=== PATIENT | female | born 1990 | race Caucasian/White ===

== ENCOUNTER 2017-03-06 13:58 | Inpatient (IN) | payer BC, OTHER ==
[~2017-03-06] VITALS: Ht 170.2 cm; Wt 67.1 kg
[2017-03-06 15:00] VITALS: BP 120/77
[2017-03-06] MEDS ORDERED: DICYCLOMINE HCL 20 MG TABLET PO PRN (15:00)
[2017-03-06] MEDS ORDERED: ONDANSETRON 4 MG/2 ML VIAL IM PRN (15:00)
[2017-03-06] MEDS ORDERED: LOPERAMIDE HCL 2 MG CAPSULE PO PRN ×2 (15:00)
[2017-03-06] MEDS ORDERED: MAG HYDROX/AL HYDROX/SIMETH 30 ML LIQUID UDC PO PRN (15:00)
[2017-03-06] MEDS ORDERED: LORAZEPAM 2 MG/1 ML VIAL IM PRN (15:00)
[2017-03-06] MEDS ORDERED: LORAZEPAM 1 MG TABLET PO PRN ×2 (15:00)
[2017-03-06] MEDS ORDERED: ACETAMINOPHEN 325 MG TABLET PO PRN (15:00)
[2017-03-06] MEDS ORDERED: ONDANSETRON ODT 4 MG TAB.RAPDIS SL PRN (15:00)
[2017-03-06] MEDS ORDERED: CLONIDINE HCL 0.1 MG TABLET PO PRN (15:00)
[2017-03-06] MEDS ORDERED: MAGNESIUM HYDROXIDE 30 ML LIQUID UDC PO PRN (15:00)
--- NOTE | 2017-03-06 15:00 | NUR ---
Initial Assessment Pt is a 26 y/o female here from [facility], here for Etoh r/t Vodka 750mL/d, Wine 1-2 bottles/d & Beer 2-3 sixteen ounce cans/d x 6 months for the last 12 years with the last use last night of all the alcohol beverages. Pt is here for Benzo's r/t Xanax 1-2 mg/d PO x 2 weeks over the last year with the last use last night. Pt also uses Marijuana with "1-2 bowels" per night x 1 month with hx of use over the last 12 years and Cocaine used occasionally of "3 lines x 2 per month with last use 1 week ago. HHx: Smoker of 1/2 pk/d, Anxiety, Depression, Bipolar, ADHD, GERD; Rx's by Psychiatrist Dr. Terence Cardoza in [place], [place] and has no Internal MD. Pt states that she thinks that she has Seizures since she tends to wake up from dreams with w/d symptoms and then has tremors and blacks out for unknown minutes. Family Hx: Mother is severely obese and pt states that her mother has multiple unknown existing medical conditions of "possible HTN, DM, Cardica/Heart diseases" and Father has HTN. Pt brought home medications. No hallucinations, delusions or suicidal ideations present. Pt is A&O x 4, ambulatory independently with steady gait. V/S stable. Pt is anxious, restless, mild clamminess and ringing of the ears. PERRLA 4, no JERONIMO present. Pt denies chest pain. No SOB present. Pt c/o hot flashes/chills & mild nausea. Last BM WNL's this morning. Pt denies dysuria. Dr. Nichols notified and is aware. T. 98.6 HR 90 RR 18 BP 120/77 SpO2 100% RA CIWA 11.
[2017-03-06] MEDS ORDERED: SPIR50TA3 PO (15:10)
[2017-03-06] MEDS ORDERED: ESCI20TA37 PO (15:11)
[2017-03-06 15:59] LABS: *URINE HCG, QUAL NEGATIVE (NEGATIVE)
[2017-03-06] MEDS ORDERED: THIAMINE HCL 200 MG/2 ML VIAL IM ONE (16:04)
[2017-03-06 16:18] LABS: *AMPHETAMINE, URINE NEGATIVE (NEGATIVE); *BARBITURATE, URINE NEGATIVE (NEGATIVE); *CANNABINOID, URINE NEGATIVE (NEGATIVE); *COCCAINE, URINE NEGATIVE (NEGATIVE); *OPIATE, URINE NEGATIVE (NEGATIVE); *PHENCYCLIDINE SCREEN,URINE NEGATIVE (NEGATIVE)
[2017-03-06 16:21] LABS: ALANINE AMINOTRANSFERASE 32 U/L (14-59); ALBUMIN 4.3 g/dL (3.4-5.0); ALKALINE PHOSPHATASE 59 U/L (50-136); AMYLASE 67 U/L (25-115); ASPARTATE AMINOTRANSFERASE 25 U/L (15-37); BILIRUBIN,TOTAL 0.3 mg/dL (0.2-1.0); CALCIUM 9.6 mg/dL (8.5-10.1); CARBON DIOXIDE 31 mmol/L (21-32); CHLORIDE 102 mmol/L (98-107); CREATININE 0.8 mg/dL (0.6-1.3); GFR 87 mL/min (>60); GLUCOSE 84 mg/dL (74-106); LIPASE 213 U/L (73-393); MAGNESIUM 2.2 mg/dL (1.8-2.4); POTASSIUM 3.9 mmol/L (3.5-5.1); SODIUM SERUM 139 mmol/L (136-145); TOTAL PROTEIN, SERUM 7.9 g/dL (6.4-8.2); UREA NITROGEN, BLOOD 10 mg/dL (7-18)
[2017-03-06 16:25] LABS: BASOPHILS % (AUTO) 0.7 % (0.0-2.0); EOSINOPHILS # (AUTO) 0.1 K/uL (0.0-0.7); EOSINOPHILS % (AUTO) 1.5 % (0.0-7.0); HEMATOCRIT 39.4 % (37.0-47.0); HEMOGLOBIN 13.5 g/dL (12.0-16.0); LYMPHOCYTES # (AUTO) 1.5 K/uL (0.8-4.8); LYMPHOCYTES % (AUTO) 27.6 % (20.5-51.5); MEAN CORPUSCULAR HEMOGLOBIN 31.6 uug (27.0-31.0); MEAN CORPUSCULAR HGB CONC 34 g/dL (32.0-37.0); MONOCYTES # (AUTO) 0.7 K/uL (0.1-1.30); MONOCYTES % (AUTO) 13.5 % (0.0-11.0); NEUTROPHILS # (AUTO) 3.2 K/uL (1.8-8.9); NEUTROPHILS % (AUTO) 56.7 % (38.5-71.5); PLATELET COUNT (AUTO) 343 K/uL (150-450); RED BLOOD CELL COUNT(AUTO) 4.28 MIL/uL (4.20-5.40); RED CELL DISTRIBUTION WIDTH 13.2 % (11.5-14.5); WHITE BLOOD COUNT (AUTO) 5.5 K/uL (4.0-11.2)
[2017-03-06 16:33] LABS: ETHANOL < 3 MG/DL (0-0)
[2017-03-06] MEDS: HYDROXYZINE PAMOATE 25 MG CAPSULE PO PRN (16:36)
[2017-03-06] MEDS: IBUPROFEN 400 MG TABLET PO PRN (16:43)
--- NOTE | 2017-03-06 16:45 | NUR ---
PRN Medication Administration-Initial PRN Ativan Refusal Pt is in room restless, anxious, and agitated, slightly flushed with clammy skin, mild nausea, stomach cramps, ringing in the ears, very mild dizziness, V/S stable and CIWA 11; pt refused the PRN Ativan 1mg w/n parameters x 3 and requested Valium instead, pt given Bentyl 20mg, initial Thiamine injection with PRN Motrin 400mg PO for s/p Pain, and pt accepted Vistaril 25mg PO for anxiety. I educated pt on the Actions, SE's of Ativan and the purpose for detoxification vs Vistaril for anxiety only and the purpose is to detox with seizure prevention and w/d s/sx yet the pt kept refusing the initial dose of Ativan for detox s/sx; Dr. Nichols is notified and will f/u with the pt. Will reassess in 1H.
[2017-03-06 16:58] LABS: HIV-1 p24 ANTIGEN NON REACTIVE (NONREACTIVE); HIV-1/2 ANTIBODY NON REACTIVE (NONREACTIVE)
--- NOTE | 2017-03-06 17:30 | NUR ---
Reassessment Pt is A&O x 4, ambulating steady and headed to dinner. Pt has mild anxiety present and denies pain, nausea, and stomach cramps; PRN Bentyl, Motrin and Zofran is effective. Will cont. to monitor the pt.
--- NOTE | 2017-03-06 19:00 | NUR ---
End of Shift Report to the night nurse: Pt is a new 26 y/o female here from [facility], here for Etoh r/t Vodka 750mL/d, Wine 1-2 bottles/d & Beer 2-3 sixteen ounce cans/d x 6 months for the last 12 years with the last use last night of all the alcohol beverages. Pt is here for Benzo's r/t Xanax 1-2 mg/d PO x 2 weeks over the last year with the last use last night. Pt also uses Marijuana with "1-2 bowels" per night x 1 month with hx of use over the last 12 years and Cocaine used occasionally of "3 lines x 2 per month with last use 1 week ago. HHx: Smoker of 1/2 pk/d, Anxiety, Depression, Bipolar, ADHD, GERD, insomnia, and seizure r/t Etoh w/d 2-3 days ago. V/S stable. Skin is intact. 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 Nichols notified since the pt states that she wants something for anxiety. PRN Zofran 4mg SL, Vistaril 25mg, Motrin and and Bentyl 20mg given as ordered and was effective since the pt went to dinner and returned with no non-verbal actions of anxiety, denies stomach cramps and nausea. Pt is scheduled to start 5 day Ativan taper tomorrow so endorsed to night nurse to f/u with taper with Dr. Nichols.
[2017-03-06 20:00] VITALS: BP 124/78
--- NOTE | 2017-03-06 20:00 | NUR ---
START OF SHIFT NOTE PATIENT IS A 26 YEAR OLD FEMALE, NEWLY ADMITTED FOR ETOH DEPENDENCE. PATIENT IS FULL CODE, REGULAR DIET AND NO KNOWN ALLERGY. PATIENT'S DRUG OF CHOICE ARE VODKA, WINE, BEER, XANAX , COCAINE AND MARIJUANA. PATIENT WAS PLACED ON 5 DAY ATIVAN TAPER TO BE STARTED TOMORROW. SKIN INTACT. ON FALL/SEIZURE PRECAUTION. PATIENT WAS GIVEN VISTARIL, MOTRIN, ZOFRAN AND THIAMINE INJECTION. LAST CIWA 11. PATIENT WAS REFUSING PRN ATIVAN. PATIENT EDUCATED ON MEDICATION,EXPLAINED RISKS/BENEFITS. PATIENT C/O SEVERE ANXIETY, RESTLESS, SWEATING AND NOTED TREMULOUS . RELAXATION TECHNIQUE PROVIDED. SAFETY MEASURES IN PLACE. CALL LIGHT IN REACH. WILL CONTINUE TO MONITOR.
--- NOTE | 2017-03-06 21:49 | NUR ---
PRN ATIVAN ADMINISTRATION PATIENT C/O SEVERE ANXIETY, RESTLESS, TREMULOUS AND C/O SWEATING. CIWA 8. PRN ATIVAN GIVEN. WILL MONITOR FOR EFFECTIVENESS
[2017-03-06] MEDS: LAMOTRIGINE 25 MG TABLET PO SCH (21:55)
[2017-03-06] MEDS: diphenhydrAMINE 50 MG CAPSULE PO PRN (22:45)
--- NOTE | 2017-03-06 22:45 | NUR ---
PRN BENADRYL ADMINISTRATION PATIENT REQUESTS FOR SLEEP AID. PRN BENADRYL GIVEN. WILL MONITOR FOR EFFECTIVENESS
--- NOTE | 2017-03-06 22:49 | NUR ---
PRN ATIVAN RE-ASSESSMENT PATIENT CAME STATE ATIVAN IS HELPFUL AND EFFECTIVE. CIWA 3 AT THIS TIME. WILL CONTINUE TO MONITOR
--- NOTE | 2017-03-06 23:45 | NUR ---
PRN BENADRYL RE-ASSESSMENT PATIENT IN BED WITH EYES CLOSED. RESPIRATION EVEN AND UNLABORED. SAFETY MEASURES IN PLACE. CALL LIGHT IN REACH. WILL CONTINUE TO MONITOR.
[2017-03-07] VITALS: BP 102/71
[2017-03-07 04:00] VITALS: BP 95/55
--- NOTE | 2017-03-07 07:34 | NUR ---
END OF SHIFT NOTE PATIENT IS A 26 YEAR OLD FEMALE, NEWLY ADMITTED FOR ETOH DEPENDENCE. PATIENT IS FULL CODE, REGULAR DIET AND NO KNOWN ALLERGY. PATIENT'S DRUG OF CHOICE ARE VODKA, WINE, BEER, XANAX , COCAINE AND MARIJUANA. PATIENT WAS PLACED ON 5 DAY ATIVAN TAPER TO BE STARTED TODAY. SKIN INTACT. ON FALL/SEIZURE PRECAUTION. PATIENT EDUCATED ON MEDICATION . PATIENT WAS GIVEN PRN ATIVAN FOR CIWA 8 , EFFECTIVE ,CIWA SCORE DOWN TO 3. PATIENT COMPLAINT WITH MEDICATIONS AND TREATMENT PLAN. SAFETY MEASURES IN PLACE. CALL LIGHT IN REACH. WILL CONTINUE TO MONITOR. SLEPT 8 HOURS. FLUID INTAKE 1,180 ML. VOIDED X 3. NO BM. LAST CIWA 2.
--- NOTE | 2017-03-07 07:55 | NUR ---
START OF SHIFT Rcvd client in room, she is A/O x 4, she presents with irritable mood, flat affect, she reports anxiety, fatigue, leg restlessness, and chills, she is c/o flushed face and dilated pupils. Encouraged increased fluids as tolerated. Encouraged group therapy attendance. Per date night caregiver nurse, client is a 26 year old female admitted for ETOH withdrawal. She is on 5 day Ativan taper first dose today @ 0900. Last CIWA 2 @ 1999, she had PRN Ativan 1mg CIWA 8, noted effective CIWA 2. PRN Benadryl for inability to sleep, slept 8 hrs. She reports PMH, Alcohol use disorder, Cocaine use disorder, History of withdrawal induced seizures Bipolar disorder, Anxiety disorder, Cystic acne, Seasonal allergic rhinitis, Attention deficit hyperactivity disorder. She is full code, regular diet, NKA. Client is on seizure precautions. Side rails up/padded x 2, call light within reach, bed locked in lowest positions. Will continue with plan of care
[2017-03-07 08:00] VITALS: BP 111/74
[2017-03-07] MEDS: THIAMINE HCL 100 MG TABLET PO SCH (08:17)
[2017-03-07] MEDS: MULTIVITAMINS,THERAPEUTIC TABLET PO SCH (08:17)
[2017-03-07] MEDS: FOLIC ACID 1 MG TABLET PO SCH (08:17)
[2017-03-07] MEDS: ESCITALOPRAM OXALATE 10 MG TABLET PO SCH (08:17)
[2017-03-07] MEDS ORDERED: LORAZEPAM 1 MG TABLET PO SCH (09:00)
[2017-03-07] MEDS ORDERED: TUBERCULIN,PURIF.PROT.DERIV. 5 TU/0.1 ML TEST ID ONE (09:00)
[2017-03-07] MEDS: HYDROXYZINE PAMOATE 25 MG CAPSULE PO PRN ×2 (11:00→22:54)
--- NOTE | 2017-03-07 11:00 | NUR ---
PRN CLONIDINE, VISTARIL Client reports anxiety, she appears hyperactive, restless, loud voice. PRN Clonidine 0.1 mg and Vistaril 25mg PO administered. Risk/benefits discuss. Will continue to monitor. Call light within reach.
[2017-03-07 12:00] VITALS: BP 120/75
--- NOTE | 2017-03-07 12:00 | NUR ---
REASSESSMENT PRN CLONIDINE, VISTARIL Client reports feeling a little bit better, less anxious, she is in bed watching TV. PRN Clonidine 0.1 mg and Vistaril 25mg effective. Will continue to monitor. Call light within reach.
[2017-03-07] MEDS: DIAZEPAM 10 MG TABLET PO SCH ×3 (12:24→20:37)
[2017-03-07 16:00] VITALS: BP 111/66
--- NOTE | 2017-03-07 17:00 | NUR ---
MD Nichols ordered EKG for DDI Lexapro and Vistaril, Client verbalized understanding.
--- NOTE | 2017-03-07 19:32 | NUR ---
END OF SHIFT: Client is on 5 day Valium taper, tolerating well, Last CIWA 6. She continues to present with flat affect and depressed mood. She denies any SI/HI. PRN (Vistaril and Clonidine) x given for anxiety, irritable mood, noted effective. Adequate intake and output. She was compliant with 1/3 of group therapy. She is to have an EKG for DDI Lexapro and Vistaril. She is full code, regular diet, NKA. Client is on seizure precautions. Side rails up/padded x 2, call light within reach, bed locked in lowest positions. Endorsed to incoming nurse.
[2017-03-07 20:00] VITALS: BP 110/70
--- NOTE | 2017-03-07 20:00 | NUR ---
START OF SHIFT NOTE PATIENT IN ROOM, RESTING. ALERT AND ORIENTED X 4. PATIENT REPORTS ANXIETY, SWEATING, TREMORS, CHILLS AND BACK PAIN 07/11. PATIENT STATES SHE NEEDS A LAXATIVE. NO N/V. PATIENT IS A 26 YEAR OLD FEMALE ADMITTED FOR ETOH DEPENDENCE. PATIENT IS FULL CODE, REGULAR DIET AND NO KNOWN ALLERGY. PATIENT WAS PLACED ON 5 DAY ATIVAN TAPER AND WAS CHANGED TO [address]. KIMBALL. PER DAY SHIFT NURSE PATIENT WAS GIVEN CATAPRES AND VISTARIL. LAST CIWA 6. PATIENT HAS AN ORDER FOR EKG FOR LEXAPRO AND VISTARIL INTERACTION. ON FALL/SEIZURE PRECAUTION. SKIN INTACT. SAFETY MEASURES IN PLACE. CALL LIGHT IN REACH. WILL CONTINUE TO MONITOR.
[2017-03-07] MEDS: LAMOTRIGINE 25 MG TABLET PO SCH (20:37)
[2017-03-07] MEDS: diphenhydrAMINE 50 MG CAPSULE PO PRN (20:38)
[2017-03-07] MEDS: MIRALAX 17 GM POWD.PACK PO PRN (20:38)
--- NOTE | 2017-03-07 20:38 | NUR ---
PRN BENADRYL/MAALOX/MIRALAX PATIENT REQUESTS FOR SLEEP AID, C/O HEARTBURN AND NEEDS LAXATIVE. PRN BENADRYL, MAALOX AND MIRALAX GIVEN. ENCOURAGE FLUIDS. WILL MONITOR FOR EFFECTIVENESS
[2017-03-07] MEDS: IBUPROFEN 400 MG TABLET PO PRN (20:47)
--- NOTE | 2017-03-07 20:47 | NUR ---
PRN MOTRIN ADMINISTRATION PATIENT C/O BACK PAIN 07/11. PRN MOTRIN GIVE. WILL MONITOR FOR EFFECTIVENESS
--- NOTE | 2017-03-07 21:38 | NUR ---
PRN MIRALAX RE-ASSESSMENT PATIENT HEARTBURN RELIEVED. MIRALAX HELPFUL AND EFFECTIVE. WILL CONTINUE TO MONITOR.
--- NOTE | 2017-03-07 21:47 | NUR ---
PRN MOTRIN RE-ASSESSMENT PATIENT PAIN LEVEL FROM 8 DOWN TO 3, PAIN TOLERABLE. MOTRIN HELPFUL AND EFFECTIVE. WILL CONTINUE TO MONITOR
--- NOTE | 2017-03-07 22:54 | NUR ---
PRN BENADRYL RE-ASSESSMENT/PRN VISTARIL PATIENT STATES BENADRYL IS INEFFECTIVE, PATIENT STILL AWAKE AND C/O ANXIETY. PRN VISTARIL GIVEN. WILL MONITOR FOR EFFECTIVENESS
[2017-03-08] VITALS: BP 102/57
--- NOTE | 2017-03-08 | NUR ---
PRN VISTARIL RE-ASSESSMENT PATIENT IN BED WITH EYES CLOSED. RESPIRATION EVEN AND UNLABORED. SAFETY MEASURES IN PLACE. CALL LIGHT IN REACH. WILL CONTINUE TO MONITOR.
[2017-03-08 04:00] VITALS: BP 93/54
--- NOTE | 2017-03-08 07:27 | NUR ---
END OF SHIFT PATIENT ALERT AND ORIENTED X 4. RESPIRATION EVEN AND UNLABORED. PATIENT C/O OF ANXIETY, SWEATING, CHILLS, TREMORS AND BACK PAIN DURING SHIFT. PATIENT UNABLE TO SLEEP AT 2037 AND BENADRY WAS GIVEN. SHE ALSO COMPLAIN OF HEARTBURN ,REQUESTED TO HAVE LAXATIVE AND C/O BACK PAIN. MAALOX , MIRALAX AND MOTRIN WAS GIVEN AT 2037. MAALOX AND MOTRIN WAS EFFECTIVE. PATIENT AT 2253 C/O ANXIETY AND BENADRYL WAS NOT EFFECTIVE. PRN VISTARIL GIVEN AT 2253 AND WAS EFFECTIVE. 629, PATIENT VERBALIZES MIRALAX INEFFECTIVE. OFFERED MILK OF MAGNESIA AND STATES SHE WILL ASK FOR IT LATER. PATIENT ALSO ADDED A PAIN MEDICATION OTHER THAN TYLENOL AND MOTRIN. WILL ENDORSE TO DAY SHIFT NURSE. ON FALL/SEIZURE PRECAUTION. SKIN INTACT. SAFETY MEASURES IN PLACE. CALL LIGHT IN REACH. WILL CONTINUE TO MONITOR. SLEPT 6 HOURS. FLUID INTAKE 1,291 ML. VOIDED X 1 . NO BM. LAST CIWA 2.
--- NOTE | 2017-03-08 07:50 | NUR ---
START OF SHIFT Rcvd client in room, she is A/O x 4, she presents with depressed mood, flat affect, she reports fatigue, leg restlessness, chills, constipation, she is c/o flushed face and dilated pupils. Encouraged increased fluids and activity as tolerated. Encouraged group therapy attendance. Per shift stacker nurse, client was admitted for ETOH withdrawal. She is on 5 day Ativan taper, tolerating well. Last CIWA 2 @ 1999, she had PRN Maalox for heartburn, Motrin back pain, Benadryl for inability to sleep, she slept 6 hrs, Miralax for constipation, no BM yet. PMH, Alcohol use disorder, Cocaine use disorder, History of withdrawal induced seizures, Bipolar disorder, Anxiety disorder, Cystic acne, Seasonal allergic rhinitis, Attention deficit hyperactivity disorder. She is full code, regular diet, NKDA. Client is on seizure precautions. Side rails up/padded x 2, call light within reach, bed locked in lowest positions. Will continue with plan of care
[2017-03-08 08:00] VITALS: BP 110/66
[2017-03-08] MEDS: MIRALAX 17 GM POWD.PACK PO PRN (08:41)
[2017-03-08] MEDS: FOLIC ACID 1 MG TABLET PO SCH (08:41)
[2017-03-08] MEDS: THIAMINE HCL 100 MG TABLET PO SCH (08:41)
[2017-03-08] MEDS: DIAZEPAM 10 MG TABLET PO SCH ×3 (08:41→20:30)
[2017-03-08] MEDS: ESCITALOPRAM OXALATE 10 MG TABLET PO SCH (08:41)
--- NOTE | 2017-03-08 08:41 | NUR ---
PRN MIRALAX Client reports constipation, Miralax 17G PO administered, advice to increased fluid intake and mobility as tolerated, she verbalized understanding. Call light within reach. will continue to monitor.
[2017-03-08] MEDS: MULTIVITAMINS,THERAPEUTIC TABLET PO SCH (08:42)
[2017-03-08] MEDS ORDERED: LORAZEPAM 1 MG TABLET PO SCH (09:00)
--- NOTE | 2017-03-08 09:41 | NUR ---
REASSESSMENT PRN MIRALAX Client reports no bowel movement at this time. Call light within reach. will continue to monitor.
[2017-03-08 12:08] LABS: HCV AB <0.1 s/co ratio (0.0-0.9); HEPATITIS B CORE AB, IgM Negative (Negative); HEPATITIS B SURFACE AG Negative (Negative)
--- NOTE | 2017-03-08 12:25 | NUR ---
MD NOTIFICATION Dr. Nichols notified of lab results RPR Reactive RPR Confirmation 1:1 He stated "I'm going to order some follow up test to further evaluate."
[2017-03-08] MEDS: KETOROLAC TROMETHAMINE 30 MG INJ IM PRN (13:03)
[2017-03-08] MEDS: DOCUSATE SODIUM 250 MG CAPSULE PO SCH (13:04)
[2017-03-08] MEDS: LIDOCAINE 5% PATCH TD SCH (13:04)
[2017-03-08 13:09] VITALS: BP 105/67
[2017-03-08] MEDS: CLONIDINE HCL 0.1 MG TABLET PO SCH ×2 (14:15→20:29)
[2017-03-08] MEDS: GABAPENTIN 300 MG CAPSULE PO SCH ×2 (14:16→20:30)
[2017-03-08] MEDS: MAGNESIUM CITRATE 296 ML BOTTLE PO PRN (14:16)
--- NOTE | 2017-03-08 14:16 | NUR ---
PRN CITRATE OF MAGNESIUM Client reports constipation, Citrate of magnesium 296mL administered. Advice to increase fluid intake and ambulation as tolerated. Call light within reach. will continue to monitor
--- NOTE | 2017-03-08 15:16 | NUR ---
REASSESSMENT PRN CITRATE OF MAGNESIUM Client reports no bowel movement at this time. Call light within reach. will continue to monitor.
[2017-03-08 16:50] VITALS: BP 111/67
[2017-03-08] MEDS ORDERED: CLONIDINE HCL 0.1 MG TABLET PO ONE (19:00)
[2017-03-08] MEDS ORDERED: HYDROXYZINE PAMOATE 25 MG CAPSULE PO ONE (19:00)
--- NOTE | 2017-03-08 19:04 | NUR ---
ONE TIME VISTARIL 50MG, CLONIDINE 0.1MG. PRN MILK OF MAGNESIA Client spoke with her sisters and appears agitated, irritable she is crying, ordered one time vistaril and Clonidine. She reports constipation MOM administered. Will endorse incoming nurse to reassess. Call light within reach.
--- NOTE | 2017-03-08 19:30 | NUR ---
START OF SHIFT NOTE : Pt. is 26 years old female , here for ETOH, Benzo's, Marijuana dependency , she is A/O x 4, she presents with depressed mood, flat affect, she reports fatigue, leg restlessness, constipation. Encouraged increased fluids and activity as tolerated. She is full code, regular diet, NKDA. Client is on seizure precautions. Last CIWA=6 at 16:00. Pt. asked for PRN medications together with P.M. meds. Safety measures in place : bed on lowest position with side rails x2 up for safety, call light within reach. Will continue to monitor closely and offer help.
--- NOTE | 2017-03-08 19:47 | NUR ---
END OF SHIFT: Client is on 5 day Valium taper, tolerating well, Last CIWA 4. She continues to present with flat affect and depressed mood. She denies any SI/HI. PRN Miralax, citrate of magnesium for constipation, not effective. (Vistaril and Clonidine) x 1 given for anxiety, irritable mood and MOM for constipation administered, incoming nurse to reassess.. Adequate intake and output. She was compliant with 1/3 of group therapy. She is full code, regular diet, NKA. Client is on seizure precautions. Side rails up/padded x 2, call light within reach, bed locked in lowest positions. Endorsed to incoming nurse.
[2017-03-08 20:00] VITALS: BP 101/68
--- NOTE | 2017-03-08 20:00 | NUR ---
REASSESSMENT ONE TIME VISTARIL, CLONIDINE, PRN MILK OF MAGNESIA Client states decreased level of anxiety, feels better, no flashes observed. Safety measures in place : bed on lowest position with side rails x2 up for safety, call light within reach. Will continue to monitor closely and offer help.
[2017-03-08] MEDS: diphenhydrAMINE 50 MG CAPSULE PO PRN (20:28)
[2017-03-08] MEDS: IBUPROFEN 600 MG TABLET PO PRN (20:28)
[2017-03-08] MEDS: LAMOTRIGINE 25 MG TABLET PO SCH (20:29)
--- NOTE | 2017-03-08 21:00 | NUR ---
ALBA NARANJO, DESTIN, MYLANTA Pt. complains of heartburn, increased level of anxiety, 5-6/10, body ache 5/10, sleeplessness. Safety measures in place : bed on lowest position with side rails x2 up for safety, call light within reach. Will continue to monitor closely and offer help.
--- NOTE | 2017-03-08 21:55 | NUR ---
REASSESSMENT ALBA HART BENADRYL, MYLANTA Pt. is able to rest quietly is ready to sleep, states decreased level of anxiety, 2/10, body ache 2/10. Safety measures in place : bed on lowest position with side rails x2 up for safety, call light within reach. Will continue to monitor closely and offer help.
[2017-03-09 04:00] VITALS: BP 85/50
--- NOTE | 2017-03-09 06:43 | NUR ---
END OF SHIFT NOTE : Pt. is 26 years old female , here for ETOH, Benzo's, Marijuana dependency , she is A/O x 4, she presents with depressed mood, flat affect, she reports fatigue, leg restlessness, constipation. Encouraged increased fluids and activity as tolerated. She is full code, regular diet, NKDA. Client is on seizure precautions PRN MOTRIN, BENADRYL, VISTARIL were given during my shift. V/S remain WNL. RR=16, even and unlabored, lungs clear upon auscultation, abdomen soft and non- distended. Pt denies nausea, vomiting and diarrhea. LAST CIWA= 3 at 0400 , IYAJAM=[id number] ml, voided x 3, slept 9 hours. Safety measures in place : bed on lowest position with side rails x2 up for safety, call light within reach. Will continue to monitor closely and offer help.
--- NOTE | 2017-03-09 07:10 | NUR ---
Start of Shift Endorsement received from nightshift nurse. Pt is a 26 y/o female admitted for alxohol and xanax dependence. Pt has been placed on a 5 day Valium taper. pt is mildly withdrawing at this time AEB CIWA 3 at 0400. Pt received PRN Motrin, Vistaril and Benadryl during evening or night nurse supervisor. Pt has slept 9 hours. PT is alert and oriented x4. Pt is in STABLE condition at this time. Remains compliant with medication and diet regimen. All needs have been met, All safety measures in place per hospital policy. Bed in lowest position, side rails up x2, call-light within reach. Will continue to monitor
[2017-03-09 08:00] VITALS: BP 95/58
[2017-03-09] MEDS ORDERED: LORAZEPAM 1 MG TABLET PO SCH (09:00)
[2017-03-09] MEDS: LIDOCAINE 5% PATCH TD SCH (09:00)
[2017-03-09] MEDS: DOCUSATE SODIUM 250 MG CAPSULE PO SCH (09:23)
[2017-03-09] MEDS: ESCITALOPRAM OXALATE 10 MG TABLET PO SCH (09:23)
[2017-03-09] MEDS: CLONIDINE HCL 0.1 MG TABLET PO SCH ×3 (09:24→20:45)
[2017-03-09] MEDS: THIAMINE HCL 100 MG TABLET PO SCH (09:24)
[2017-03-09] MEDS: MULTIVITAMINS,THERAPEUTIC TABLET PO SCH (09:24)
[2017-03-09] MEDS: GABAPENTIN 300 MG CAPSULE PO SCH ×3 (09:24→20:46)
[2017-03-09] MEDS: FOLIC ACID 1 MG TABLET PO SCH (09:25)
[2017-03-09] MEDS: DIAZEPAM 5 MG TABLET PO SCH ×4 (09:25→20:49)
--- NOTE | 2017-03-09 09:30 | NUR ---
PRN Motrin Administered PRN Motrin for headache of 5/10 reported by pt.
[2017-03-09] MEDS: IBUPROFEN 600 MG TABLET PO PRN (09:31)
--- NOTE | 2017-03-09 10:00 | NUR ---
Medication Re-assessment Pt reports relief from headache and rates pain 1/10. Medication was effective.
[2017-03-09] MEDS ORDERED: BISACODYL 5 MG TABLET.DR PO PRN (11:45)
[2017-03-09] MEDS ORDERED: BISACODYL 10 MG SUPP.RECT RC PRN (11:45)
[2017-03-09] MEDS: MAGNESIUM CITRATE 296 ML BOTTLE PO PRN (12:57)
[2017-03-09] MEDS: HYDROXYZINE PAMOATE 25 MG CAPSULE PO PRN ×2 (12:57→20:43)
--- NOTE | 2017-03-09 12:57 | NUR ---
PRN Medication Pt received PRN Magnesium Citrate and Dulcolax for constipation.
--- NOTE | 2017-03-09 12:57 | NUR ---
PRN Vistaril Administered PRN Vistaril for 06/10 anxiety reported by pt.
[2017-03-09 13:00] VITALS: BP 115/59
--- NOTE | 2017-03-09 13:30 | NUR ---
Medication re-assessment Pt reports 3/10 anxiety at this time. Medication was partially effective.
--- NOTE | 2017-03-09 14:00 | NUR ---
PRN Re-assessment Pt reports 3 BMs, medications were effective.
--- NOTE | 2017-03-09 15:10 | NUR ---
PRN Imodium Administered PRN Imodium due to reported Diarrhea by pt.
[2017-03-09 16:00] VITALS: BP 100/51
--- NOTE | 2017-03-09 19:02 | NUR ---
End of Shift Endorsement given to nightshift nurse. Pt is a 26 y/o female admitted for alcohol and Xanax dependence. Pt has been placed on a 5 day Valium taper. pt is mildly withdrawing at this time AEB CIWA 4 at 1600. Pt received PRN Motrin, Vistaril, Imodium, Magnesium Citrate and Dulcolax. Pt has participated in groups and activities. Educated pt on deep breathing techniques to help relieve minor to moderate anxiety. Pt returned demonstration. Intake: 3585ml, Void x7, BM x6. PT is alert and oriented x4. Pt is in STABLE condition at this time. Remains compliant with medication and diet regimen. All needs have been met, All safety measures in place per hospital policy. Bed in lowest position, side rails up x2, call-light within reach. Will continue to monitor
--- NOTE | 2017-03-09 19:30 | NUR ---
START OF SHIFT NOTE : Pt. is 26 years old female , here for ETOH, Benzo's, Marijuana dependency , she is A/O x 4, she presents with depressed mood, flat affect, she reports fatigue. Encouraged increased fluids and activity as tolerated. She is full code, regular diet, NKDA. Client is on seizure precautions. CIWA=4 . Pt. asked for another dose of Imodium because of liquid stool. VS stable. Safety measures in place : bed on lowest position with side rails x2 up for safety, call light within reach. Will continue to monitor closely and offer help.
[2017-03-09 20:00] VITALS: BP 106/74
[2017-03-09] MEDS: diphenhydrAMINE 50 MG CAPSULE PO PRN (20:43)
[2017-03-09] MEDS: LAMOTRIGINE 25 MG TABLET PO SCH (20:46)
--- NOTE | 2017-03-09 21:00 | NUR ---
PRN IMODIUM, VISTARIL, BENADRYL Pt. complains of heartburn, increased level of anxiety, 5-6/10, sleeplessness, liquid stool. Safety measures in place : bed on lowest position with side rails x2 up for safety, call light within reach. Will continue to monitor closely and offer help.
--- NOTE | 2017-03-09 21:55 | NUR ---
REASSESSMENT IMODIUM, VISTARIL, BENADRYL Pt. is able to rest quietly is ready to sleep, states decreased level of anxiety, 2/10. She has smoked, no BM after Imodium dose. Safety measures in place : bed on lowest position with side rails x2 up for safety, call light within reach. Will continue to monitor closely and offer help.
[2017-03-10 04:00] VITALS: BP 85/50
--- NOTE | 2017-03-10 06:49 | NUR ---
END OF SHIFT NOTE : Pt. is 26 years old female , here for ETOH, Benzo's, Marijuana dependency , she is A/O x 4, she presents with depressed mood, flat affect, she reports fatigue, leg restlessness, constipation. Encouraged increased fluids and activity as tolerated. She is full code, regular diet, NKDA. Client is on seizure precautions.PRN IMODIUM, BENADRYL, VISTARIL were given during my shift. V/S remain WNL. RR=16, even and unlabored, lungs clear upon auscultation, abdomen soft and non- distended. Pt denies nausea, vomiting and diarrhea. LAST CIWA= 3 at 0400 , WNTIAU=064 ml, voided x 1, slept 7 hours. BP was low in A.M. as before. BM x3 in the night. Safety measures in place : bed on lowest position with side rails x2 up for safety, call light within reach. Will continue to monitor closely and offer help.
--- NOTE | 2017-03-10 07:49 | NUR ---
START OF SHIFT NOTE: Received report from rn night nurse. Pt. is 26 year old female admitted 03-06-17 for ETOH, Benzo's, Marijuana dependency. Pt is on a 5 day Valium taper. Tolerating well. Pt is alert and oriented X4. Color good, skin warm and dry. Respirations even and unlabored. Pt is on a 5 day Ativan taper. Tolerating well. Pt is on 1:1 status due to pt being disoriented during the night. Safety precautions observed. Call light within reach. Will continue to monitor. Addendum: 03/10/17 at 0949 by HEIDY LUNA RN Please disregard the above note which states prt is on a 1:1 She is not
[2017-03-10 07:51] LABS: FOLIC ACID 18.7 NG/ML (8.6-58.9)
[2017-03-10 08:00] VITALS: BP 112/60
[2017-03-10] MEDS: FOLIC ACID 1 MG TABLET PO SCH (08:35)
[2017-03-10] MEDS: DOCUSATE SODIUM 250 MG CAPSULE PO SCH (08:35)
[2017-03-10] MEDS: GABAPENTIN 300 MG CAPSULE PO SCH ×3 (08:35→21:32)
[2017-03-10] MEDS: MULTIVITAMINS,THERAPEUTIC TABLET PO SCH (08:35)
[2017-03-10] MEDS: ESCITALOPRAM OXALATE 10 MG TABLET PO SCH (08:36)
[2017-03-10] MEDS: THIAMINE HCL 100 MG TABLET PO SCH (08:36)
[2017-03-10] MEDS: DIAZEPAM 5 MG TABLET PO SCH ×3 (08:36→21:33)
[2017-03-10] MEDS: CLONIDINE HCL 0.1 MG TABLET PO SCH ×3 (08:38→21:33)
[2017-03-10] MEDS: LIDOCAINE 5% PATCH TD SCH (08:42)
[2017-03-10] MEDS ORDERED: LORAZEPAM 1 MG TABLET PO SCH (09:00)
--- NOTE | 2017-03-10 10:00 | NUR ---
VSS CIWA 9 Pt c/o anxiety, tremors and sweating.
[2017-03-10 12:59] VITALS: BP 122/72
--- NOTE | 2017-03-10 15:00 | NUR ---
VSS CIWA 6 Pt states "I feel better." Still with anxiety.
[2017-03-10 18:40] VITALS: BP 112/60
--- NOTE | 2017-03-10 19:15 | NUR ---
START OF SHIFT Received 26 year old female patient admitted on 03/06/17 for ETOH, Xanax, and Marijuana dependency. Pt is full code with NKDevendra. She reports a PMHx of anxiety, depression, bipolar and ADHD, Seizure 2-3 days ago related to ETOH w/d and insomnia. She reports drinking vodka 1/5th daily for 6 months. Last dose was 03/05/17. Wine 1-2 bottles daily x 6 months. Last dose 03/05/17. Beer 2-3, 16 oz daily for 6 months. Last dose 03/06/17. Xanax 1-2 mg 2x/week for 1 year. Last dose was 03/05/17. Cocaine 3 lines twice a month occasional use. Last dose was one week ago. And Marijuana 1-2 bowls/ night for one month. Last dose 03/05/17. Pt placed on 5 day Valium taper and tolerating well. Per endorsement, pt did not receive or request PRN medications. Pt is alert and oriented x4, breathing is even and unlabored. Pt safe with bed locked in lowest position, side rails up x2 and call light within reach. Will continue to monitor.
--- NOTE | 2017-03-10 19:17 | NUR ---
END OF SHIFT NOTE: Report given to overnight stocker nurse. Pt. is 26 year old female admitted 03-06-17 for ETOH, Benzo's, Marijuana dependency. Pt is on a 5 day Valium taper. Tolerating well. Pt is alert and oriented X4. Color good, skin warm and dry. Respirations even and unlabored. Pt is on a 5 day Ativan taper. Tolerating well. Vital signs have remained stable throughout shift. Last CIWA 6 @ 1500. No prn's given . Safety precautions observed. Call light within reach.
[2017-03-10 20:00] VITALS: BP 127/62
[2017-03-10] MEDS: LAMOTRIGINE 25 MG TABLET PO SCH (21:32)
[2017-03-10] MEDS: QUETIAPINE FUMARATE 25 MG TABLET PO PRN (21:33)
[2017-03-10] MEDS: KETOROLAC TROMETHAMINE 30 MG INJ IM PRN (21:34)
--- NOTE | 2017-03-10 21:34 | NUR ---
PRN TORADOL/SEROQUEL Pt complains of 10/10 lower back achy, throbbing pain. Pt complains of agitation. PRN Toradol/Seroquel administered as ordered. Breathing is even and unlabored, safety measures in place. Will continue to monitor effectiveness of medications.
--- NOTE | 2017-03-10 22:34 | NUR ---
PRN TORADOL/SEROQUEL REASSESSMENT PRN medications effective. Pt reports decrease in lower back pain 6/10, and pt observed to be less agitated. Breathing even and unlabored, safety measures in place. Will continue to monitor.
[2017-03-11] VITALS: BP 96/60
[2017-03-11 04:00] VITALS: BP 93/58
--- NOTE | 2017-03-11 07:02 | NUR ---
Start of Shift Endorsement received from nightshift nurse. Pt is a 26 y/o female admitted for alcohol and Xanax dependence. Pt has been placed on a 5 day Valium taper. Pt has received PRN Toradol and Seroquel . Pt is mildly withdrawing at this time AEB CIWA 3 at 0400. Pt reports readiness for sobriety. Pt is tolerating the taper well, VS WNL, Full Code.. Pt has slept 7 hours. PT is alert and oriented x4. Pt is in STABLE condition at this time. Remains compliant with medication and diet regimen. All needs have been met, All safety measures in place per hospital policy. Bed in lowest position, side rails up x2, call-light within reach. Will continue to monitor
--- NOTE | 2017-03-11 07:09 | NUR ---
END OF SHIFT Pt remained stable. Pt had uneventful night. She received PRN medications of Toradol IM, and Seroquel at 2134 d/t complains of lower back pain 10/10 and agitation. PRN medications were effective. She slept a total of 7 hrs, intake:3087mL void:x4 BM:x1 CIWA:3. Pt remains alert and oriented x4, breathing is even and unlabored, safety measures in place. Will endorse to oncoming shift.
[2017-03-11 08:00] VITALS: BP 107/69
[2017-03-11] MEDS: ESCITALOPRAM OXALATE 10 MG TABLET PO SCH (08:29)
[2017-03-11] MEDS: THIAMINE HCL 100 MG TABLET PO SCH (08:30)
[2017-03-11] MEDS: DOCUSATE SODIUM 250 MG CAPSULE PO SCH (08:30)
[2017-03-11] MEDS: CLONIDINE HCL 0.1 MG TABLET PO SCH ×3 (08:30→20:42)
[2017-03-11] MEDS: FOLIC ACID 1 MG TABLET PO SCH (08:30)
[2017-03-11] MEDS: GABAPENTIN 300 MG CAPSULE PO SCH ×3 (08:30→20:41)
[2017-03-11] MEDS: MULTIVITAMINS,THERAPEUTIC TABLET PO SCH (08:30)
[2017-03-11] MEDS: DIAZEPAM 5 MG TABLET PO SCH ×2 (08:30→20:41)
[2017-03-11] MEDS: LIDOCAINE 5% PATCH TD SCH (08:35)
[2017-03-11] MEDS ORDERED: LORAZEPAM 1 MG TABLET PO SCH (09:00)
[2017-03-11 12:00] VITALS: BP 114/62
[2017-03-11] MEDS: NICOTINE 7 MG/24HR PATCH TD SCH (13:00)
[2017-03-11] MEDS ORDERED: NICOTINE POLACRILEX 4 MG GUM-PK OF TEN BC PRN (13:00)
[2017-03-11] MEDS: IBUPROFEN 600 MG TABLET PO PRN (13:25)
[2017-03-11 16:00] VITALS: BP 122/61
--- NOTE | 2017-03-11 19:15 | NUR ---
START OF SHIFT Received 26 year old female patient admitted on 03/06/17 for ETOH, Xanax, and Marijuana dependency. Pt is full code with NKA. Pt placed on 5 day Valium taper started on 03/07/17 and tolerating well. Per endorsement, pt did not receive or request PRN medications. Pt is alert and oriented x4, breathing is even and unlabored. Pt safe with bed locked in lowest position, side rails up x2 and call light within reach. Will continue to monitor.
--- NOTE | 2017-03-11 19:29 | NUR ---
End of Shift Endorsement given to nightshift nurse. Pt is a 26 y/o female admitted for alcohol and Xanax dependence. Pt has been placed on a 5 day Valium taper. Pt did not receive any PRN medications . Pt is mildly withdrawing at this time AEB CIWA 2 at 1600. Pt reports readiness for sobriety. Intake: 3400ml, Void x4, BM x1 Pt is tolerating the taper well, VS WNL, Full Code.. Pt participated in groups and activities. PT is alert and oriented x4. Pt is in STABLE condition at this time. Remains compliant with medication and diet regimen. All needs have been met, All safety measures in place per hospital policy. Bed in lowest position, side rails up x2, call-light within reach. Will continue to monitor
[2017-03-11 20:00] VITALS: BP 110/70
[2017-03-11] MEDS: LAMOTRIGINE 25 MG TABLET PO SCH (20:41)
[2017-03-11] MEDS: QUETIAPINE FUMARATE 25 MG TABLET PO PRN (20:42)
--- NOTE | 2017-03-11 20:42 | NUR ---
PRN SEROQUEL Pt complains of increased agitation/ anxiety. PRN Seroquel administered as ordered. Breathing is even and unlabored, safety measures in place. Will continue to monitor.
--- NOTE | 2017-03-11 21:42 | NUR ---
PRN SEROQUEL REASSESSMENT PRN medication effective. Pt observed to be more calm and less agitated. Breathing is even and unlabored, safety measures in place. Will continue to monitor.
[2017-03-12] VITALS: BP 108/65
[2017-03-12 04:00] VITALS: BP 93/52
[2017-03-12] MEDS: HYDROXYZINE PAMOATE 25 MG CAPSULE PO PRN ×3 (04:03→20:57)
--- NOTE | 2017-03-12 04:03 | NUR ---
PRN VISTARIL Pt complains of anxiety and inability to fall back asleep. Pt observed to be restless in bed. PRN Vistaril administered as ordered. Breathing even and unlabored, respirations 16, safety measures in place. Will continue to monitor effectiveness.
--- NOTE | 2017-03-12 05:03 | NUR ---
PRN VISTARIL REASSESSMENT PRN Vistaril effective. Pt lying quietly in bed with eyes closed. Appears calm and less anxious. Breathing is even and unlabored, safety measures in place. Will continue to monitor.
--- NOTE | 2017-03-12 07:09 | NUR ---
END OF SHIFT Pt remained stable and had uneventful night. She continues on 5 day valium taper and tolerating well. She received PRN Seroquel at 2 d/t agitation, and PRN Vistaril at 0403 d/t anxiety. PRN medications were effective in decreasing her agitation and anxiety. Pt reports withdrawal symptoms of anxiety and states that taper is effective in relieving her symptoms as evidenced by decrease CIWA score of 3. She slept a total of 6 hrs, Intake: 946 mL, Void: x1, BM: 0. CIWA:3 at 0400. Pt remains alert and oriented x4, breathing is even and unlabored, safety measures in place. Endorsed to AM shift.
[2017-03-12] MEDS: IBUPROFEN 600 MG TABLET PO PRN ×2 (07:27→20:41)
--- NOTE | 2017-03-12 07:27 | NUR ---
PRN Pt with c/o headache 06/10. MOtrin po prn per MD order given and tolerated well.
[2017-03-12 08:00] VITALS: BP 150/117
--- NOTE | 2017-03-12 08:00 | NUR ---
START OF SHIFT Pt 26 y/o female admitted for etoh abuse. Pt received in room awake watching television. Pt alert and oriented to name, place, and time. Perrla. Skin warm and dry to touch. Respirations even and unlabored. It was reported that pt slept for 6 hours last night. Pt completed a 5 day valium taper. Bed on lowest position with side rails x2 up for safety. Call light within reach. No distress noted at this time.
[2017-03-12 08:13] LABS: *BENZODIAZEPINES Negative (Cutoff=300)
[2017-03-12 08:13] LABS: VIT D, 25-HYDROXY 27.9 ng/mL (30.0-100.0)
--- NOTE | 2017-03-12 08:27 | NUR ---
PRN EVAL Pt states headache 2/10 pain level.
[2017-03-12] MEDS: NICOTINE 7 MG/24HR PATCH TD SCH (09:00)
[2017-03-12] MEDS: ESCITALOPRAM OXALATE 10 MG TABLET PO SCH (10:39)
[2017-03-12] MEDS: THIAMINE HCL 100 MG TABLET PO SCH (10:39)
[2017-03-12] MEDS: MULTIVITAMINS,THERAPEUTIC TABLET PO SCH (10:39)
[2017-03-12] MEDS: GABAPENTIN 300 MG CAPSULE PO SCH ×3 (10:39→20:41)
[2017-03-12] MEDS: DOCUSATE SODIUM 250 MG CAPSULE PO SCH (10:39)
--- NOTE | 2017-03-12 10:39 | NUR ---
PRN Pt hyperverbal, fidgety, and restless. Vistaril po prn per MD order given and tolerated well.
[2017-03-12] MEDS: FOLIC ACID 1 MG TABLET PO SCH (10:40)
[2017-03-12] MEDS: LIDOCAINE 5% PATCH TD SCH (10:40)
[2017-03-12] MEDS: CLONIDINE HCL 0.1 MG TABLET PO SCH ×3 (10:40→20:40)
--- NOTE | 2017-03-12 11:00 | NUR ---
NSG ENTRY Pt with crying and tearful episode. Pt stated was upset that she is going to treatment center after here. Dr. Nichols and convention planner on unit and talked with pt.
--- NOTE | 2017-03-12 11:38 | NUR ---
PRN LAURA Pt observed in group activity sitting on chair.
[2017-03-12] MEDS: QUETIAPINE FUMARATE 25 MG TABLET PO PRN ×2 (12:33→19:05)
--- NOTE | 2017-03-12 12:35 | NUR ---
PRN Pt with agitated episode. Pt raising voice and hard to redirect. Seroquel po prn per MD order given and tolerated well.
[2017-03-12 13:00] VITALS: BP 98/58
[2017-03-12 13:34] LABS: *AMPHETAMINE, URINE NEGATIVE (NEGATIVE); *BARBITURATE, URINE NEGATIVE (NEGATIVE); *CANNABINOID, URINE NEGATIVE (NEGATIVE); *COCCAINE, URINE NEGATIVE (NEGATIVE); *OPIATE, URINE NEGATIVE (NEGATIVE); *PHENCYCLIDINE SCREEN,URINE NEGATIVE (NEGATIVE)
--- NOTE | 2017-03-12 13:35 | NUR ---
HENRRY SANCHEZ Pt observed talking with other clients in the hallway.
[2017-03-12] MEDS ORDERED: HYDROXYZINE PAMOATE 25 MG CAPSULE PO ONE (15:45)
[2017-03-12 16:00] VITALS: BP 110/80
[2017-03-12] MEDS ORDERED: DIPH50CA37 PO (17:21)
[2017-03-12] MEDS ORDERED: Ibuprofen PO (17:21)
[2017-03-12] MEDS ORDERED: LIDO30AD10 TD (17:21)
[2017-03-12] MEDS ORDERED: ESCI10TA PO (17:21)
[2017-03-12] MEDS ORDERED: HYDR-3895 PO (17:21)
[2017-03-12] MEDS ORDERED: DICY20TA28 PO (17:21)
[2017-03-12] MEDS ORDERED: NICO1PAT46 TD (17:21)
[2017-03-12] MEDS ORDERED: Gabapentin PO ×2 (17:21)
[2017-03-12] MEDS ORDERED: CLON0.1T14 PO (17:21)
[2017-03-12] MEDS ORDERED: CHOL10002 PO (17:21)
--- NOTE | 2017-03-12 18:20 | NUR ---
END OF SHIFT Pt 26 y/o female admitted for etoh abuse. Pt alert and oriented to name, place, and time. Perrla. Skin warm and dry to touch. Respirations even and unlabored. Bilateral hand tremors noted slightly. Pt observed mostly in room throughout the day, but did attend group activity. Pt medication compliant and tolerated well. No ASE noted. Pt was seen by Dr. Nichols and Dr. Navarro today. Pt is scheduled to be discharged tomorrow. Pt with agitated and anxious episode this morning and this afternoon. Bed on lowest position with side rails x2 up for safety. Call light within reach. No distress noted at this time.
--- NOTE | 2017-03-12 19:46 | NUR ---
START OF SHIFT NOTE Pt is a 26 y/o female ETOH, Xanax, Cocaine, and Marijuana dependence and use. Pt has NKA but reported a PMH of anxiety, depression, bipolar, ADHD, GERD, seizure (r/t ETOH w/d) and insomnia. Per day shift pt completed 5 day Valium taper and is scheduled for discharge tomorrow. UA results noted and filed appropriately in the pt's chart. Pt received Seroquel 25 mg PO PRN, Seroquel 50 mg PO x 1, Vistaril 50 mg PO PRN x2, and Motrin 600 mg PO PRN during the day shift. Last CIWA: 4(1600). At this time pt is standing in the hallway talking with peers. Pt stated " I'm doing fine. I just have a slight headache. Can I have some Motrin with my meds? I'm going downstairs for a cigarette first then I'll meet you in my room." Pt denies any other pain/discomfort other than her current headache. Pt was encouraged to notify staff of any changes in condition or of any further concerns. Pt verbalized an understanding. Will continue to monitor.
[2017-03-12 20:00] VITALS: BP 109/68
[2017-03-12] MEDS: LAMOTRIGINE 25 MG TABLET PO SCH (20:40)
--- NOTE | 2017-03-12 20:41 | NUR ---
MOTRIN PRN ADMINISTRATION Pt stated " I have a headache. It's not that bad. I just don't want it to get worse. It's about a 4/10 right now." Motrin 600 mg PO PRN was given. Pt was encouraged to notify staff of any changes in condition or of any concerns. Pt verbalized an understanding. All safety measures in place. Will monitor for effectiveness.
--- NOTE | 2017-03-12 20:57 | NUR ---
VISTARIL PRN ADMINISTRATION Pt stated "I'm feeling a little anxious. Can I get some Vistaril?" Vistaril 50 mg PO PRN was given. Pt was encouraged to notify staff of any changes in condition or of any concerns. Pt verbalized an understanding. All safety measures in place. Will monitor for effectiveness.
--- NOTE | 2017-03-12 21:40 | NUR ---
MOTRIN PRN REASSESSMENT Pt stated " My head feels much better. I think the Motrin works better when you take it before the pain gets worse." PRN effective. All safety measures in place. Will continue to monitor.
[2017-03-12] MEDS: diphenhydrAMINE 50 MG CAPSULE PO PRN (21:55)
--- NOTE | 2017-03-12 21:56 | NUR ---
BENADRYL PRN ADMINISTRATION Pt stated " Can I have some Benadryl? That really helps me sleep." Benadryl 50 mg PO PRN was given. Pt was encouraged to notify staff of any changes in condition or of any concerns. Pt verbalized an understanding. All safety measures in place. Will monitor for effectiveness.
--- NOTE | 2017-03-12 21:57 | NUR ---
VISTARIL PRN REASSESSMENT Pt stated " I feel more at ease now." PRN effective. All safety measures in place. Will continue to monitor.
--- NOTE | 2017-03-12 22:56 | NUR ---
BENADRYL PRN REASSESSMENT Pt is asleep in bed with no signs of discomfort/distress noted. Breathing is even and unlabored. Respirations are 16 breaths per minute. PRN effective. All safety measures in place. Will continue to monitor.
--- NOTE | 2017-03-13 | NUR ---
CIWA AND VITALS REFUSED Pt refused to assessed and have vitals taken at this time. Pt was encouraged x 3 with risks and benefits explained, but the pt still declined. All safety measures in place. Will continue to monitor. Addendum: 03/13/17 at 0224 by KISHA PRINGLE LVN Amended: Links added.
[2017-03-13] MEDS: QUETIAPINE FUMARATE 25 MG TABLET PO PRN (02:46)
--- NOTE | 2017-03-13 02:46 | NUR ---
Seroquel PRN: Pt requested for medication that will help her calm down. Pt explained that she can't sleep and she was worried about her discharge location later in the day. Pt noted with restlessness and agitation. PRN Seroquel given as ordered. Will continue to monitor.
[2017-03-13] MEDS: HYDROXYZINE PAMOATE 25 MG CAPSULE PO PRN (02:58)
--- NOTE | 2017-03-13 02:58 | NUR ---
Vistaril PRN: Pt stated that she cannot fall back to sleep because of her anxiety. Pt requested to also take Vistaril as it has helped her with anxiety previously. Vistaril PRN given for anxiety as ordered. Will continue to monitor.
--- NOTE | 2017-03-13 03:50 | NUR ---
SEROQUEL AND VISTARIL PRN REASSESSMENT Pt is asleep in bed with no signs of discomfort/distress or anxiety noted. Pt's breathing is even and unlabored. Respirations are 16 breaths per minute. PRNS effective. All safety measures in place. Will continue to monitor.
--- NOTE | 2017-03-13 04:00 | NUR ---
CIWA AND VITALS REFUSED Pt refused to assessed and have vitals taken at this time. Pt was encouraged x 3 with risks and benefits explained, but the pt still declined. All safety measures in place. Will continue to monitor. Addendum: 03/13/17 at 0544 by KISHA PRINGLE LVN Amended: Links added.
--- NOTE | 2017-03-13 07:05 | NUR ---
Start of Shift Endorsement received from nightshift nurse. Pt is a 26 y/o female admitted for alcohol and Xanax dependence. Pt has been placed on a 5 day Valium taper. Pt has received PRN Vistaril x2, Motrin, Benadryl and Seroquel. Pt has completed the tapers and has been scheduled to be discharged today, 03/13/17. All discharge teaching and documentation has been completed. Pt is mildly withdrawing at this time AEB CIWA 1 at 2100. Pt reports readiness for sobriety. Pt is tolerating the taper well, VS WNL, Full Code.. Pt has slept 5 hours. PT is alert and oriented x4. Pt is in STABLE condition at this time. Remains compliant with medication and diet regimen. All needs have been met, All safety measures in place per hospital policy. Bed in lowest position, side rails up x2, call-light within reach. Will continue to monitor
--- NOTE | 2017-03-13 07:23 | NUR ---
END OF SHIFT NOTE Pt is a 26 y/o female ETOH, Xanax, Cocaine, and Marijuana dependence and use. Pt has NKA but reported a PMH of anxiety, depression, bipolar, ADHD, GERD, seizure (r/t ETOH w/d) and insomnia. Pt completed 5 day Valium taper and is scheduled for discharge today. UA results noted and filed appropriately in the pt's chart. Pt received Seroquel 50 mg PO PRN, Vistaril 50 mg PO PRN x 2 , Motrin 600 mg PO PRN, and Benadryl 50 mg PO PRN during the shift. Last CIWA: 1 (1999). Pt slept for a total of 5 and half hours. All safety measures in place; side rails up x 2, bed locked and in low position, and call light is within reach. Endorsed to the oncoming nurse.
[2017-03-13 08:00] VITALS: BP 100/59
[2017-03-13 08:40] VITALS: BP 105/59
[2017-03-13] MEDS: NICOTINE 7 MG/24HR PATCH TD SCH (08:40)
[2017-03-13] MEDS: ESCITALOPRAM OXALATE 10 MG TABLET PO SCH (08:40)
[2017-03-13] MEDS: CLONIDINE HCL 0.1 MG TABLET PO SCH (08:40)
[2017-03-13] MEDS: DOCUSATE SODIUM 250 MG CAPSULE PO SCH (08:40)
[2017-03-13] MEDS: GABAPENTIN 300 MG CAPSULE PO SCH (08:40)
[2017-03-13] MEDS: FOLIC ACID 1 MG TABLET PO SCH (08:40)
[2017-03-13] MEDS: THIAMINE HCL 100 MG TABLET PO SCH (08:40)
[2017-03-13] MEDS: MULTIVITAMINS,THERAPEUTIC TABLET PO SCH (08:40)
[2017-03-13] MEDS: LIDOCAINE 5% PATCH TD SCH (08:41)
[2017-03-13] MEDS ORDERED: CHOLECALCIFEROL 1,000 UNIT TABLET PO SCH (09:00)
--- NOTE | 2017-03-13 09:55 | NUR ---
Discharge note PT has been discharged from [facility]. PT is in Stable condition, VS WNL. Denies suicidal and homicidal ideations at this time. . All documentation has been completed, paperwork signed and dated. Pt left with all of her belongings, medications and prescriptions. Pt has been discharged from [facility] on 03/13/17 at 0955. has been Notified.
== END 2017-03-13 09:55 | disposition other institution (70) | DRG 895 ==
LOC: SRC 14:02
PROVIDERS: ADMIT Internal Medicine; ATTEND Internal Medicine
PROC: HZ2ZZZZ Detoxification Services for Substance Abuse Treatment (ICD-10-PCS; principal; 2017-03-06)
PROC: HZ41ZZZ Group Counseling for Substance Abuse Treatment, Behavioral (ICD-10-PCS; 2017-03-08)
PROC: HZ31ZZZ Individual Counseling for Substance Abuse Treatment, Behavioral (ICD-10-PCS; 2017-03-09)
DX: F10.230 Alcohol dependence with withdrawal, uncomplicated (principal); F13.10 Sedative, hypnotic or anxiolytic abuse, uncomplicated; Y90.9 Presence of alcohol in blood, level not specified; E55.9 Vitamin D deficiency, unspecified; Z81.1 Family history of alcohol abuse and dependence; Z81.8 Family history of other mental and behavioral disorders; Z80.9 Family history of malignant neoplasm, unspecified; L70.0 Acne vulgaris; F90.9 Attention-deficit hyperactivity disorder, unspecified type; F15.90 Other stimulant use, unspecified, uncomplicated; J30.2 Other seasonal allergic rhinitis; F31.9 Bipolar disorder, unspecified; F17.210 Nicotine dependence, cigarettes, uncomplicated; F14.10 Cocaine abuse, uncomplicated; F12.10 Cannabis abuse, uncomplicated; F41.0 Panic disorder [episodic paroxysmal anxiety]; K59.00 Constipation, unspecified
CPT/HCPCS: 36415; 70030-TC; 80307; 80346; 82306; 82746; 83690; 83735; 84443; 84703; 85025; 86592; 86705; 86780; 86803; 87340; 87806; 93005; A9150; G6040-TC; J1885; J3411; Q0162; Q0163